=== PATIENT | male | born 1940 | race Caucasian/White ===

== ENCOUNTER 2016-11-18 11:42 | Emergency (ER) | payer MEDICARE ==
[2016-11-18 11:57] VITALS: BP 96/58; PULSE 110; RESP 20; TEMP 97.7
--- NOTE | 2016-11-18 12:14 | ED ---
General Adult HPI - General Chief complaint: Urogenital Stated complaint: CATHETER BLOCKED Time Seen by Provider: 11/18/16 11:51 Source: patient, family, RN notes reviewed Mode of arrival: ambulatory Limitations: no limitations - History of Present Illness Initial comments: Patient is a pleasant 76-year-old male presenting to the emergency Department with Yun catheter not draining. Patient last had drainage last night. Patient has had similar symptoms multiple times previously. Patient has had catheter present for the past 8 months. Patient does have a urologist that he regularly sees. Patient is now having some bladder fullness and discomfort. Daughter provides majority of history. - Related Data Allergies Allergy/AdvReac Type Severity Reaction Status Date / Time morphine Allergy Unknown Verified 11/18/16 11:57 Review of Systems ROS Statement: Those systems with pertinent positive or pertinent negative responses have been documented in the HPI. ROS Other: All systems not noted in ROS Statement are negative. Constitutional: Denies: fever Eyes: Denies: eye pain ENT: Denies: ear pain Respiratory: Denies: cough Cardiovascular: Denies: chest pain Endocrine: Denies: fatigue Gastrointestinal: Reports: abdominal pain (Bladder) Genitourinary: Reports: other (Clogged catheter) Skin: Denies: rash Neurological: Denies: weakness Past Medical History Past Medical History: Cancer, Thyroid Disorder Additional Past Medical History / Comment(s): THYROID, BPH History of Any Multi-Drug Resistant Organisms: None Reported Past Surgical History: Cholecystectomy Past Psychological History: No Psychological Hx Reported Smoking Status: Former smoker Past Alcohol Use History: None Reported Past Drug Use History: None Reported General Exam Limitations: no limitations General appearance: alert, in no apparent distress Head exam: Present: atraumatic Eye exam: Present: normal appearance, PERRL ENT exam: Present: normal oropharynx Neck exam: Present: normal inspection Respiratory exam: Present: normal lung sounds bilaterally Cardiovascular Exam: Present: regular rate, normal rhythm GI/Abdominal exam: Present: soft, distended (Distended bladder with mild tenderness) Extremities exam: Present: normal inspection Neurological exam: Present: alert Psychiatric exam: Present: normal affect, normal mood Skin exam: Absent: rash Course Vital Signs 11/18/16 11:52 Temperature 97.7 F Pulse Rate 110 H Respiratory 20 Rate Blood Pressure 96/58 O2 Sat by Pulse 95 Oximetry Medical Decision Making - Medical Decision Making Catheter placed by nursing staff with over 800 mL of urine output and resolution of symptoms. Disposition Clinical Impression: Urinary retention Disposition: HOME SELF-CARE Condition: Stable Instructions: Urinary Retention in Men (ED) Additional Instructions: Please follow-up with your urologist in the next day or 2 for recheck. Return for increased pain, fevers, worsening or change in symptoms and was unable to pass urine, or other concerns. Referrals: Simi Mi DO [Primary Care Provider] - 1-2 days
== END 2016-11-18 13:01 | disposition home or self-care (01) ==
LOC: EC 11:42
DX: T83.098A Other mechanical complication of other urinary catheter, initial encounter (principal); R33.9 Retention of urine, unspecified; Z88.5 Allergy status to narcotic agent; Z87.891 Personal history of nicotine dependence
CPT/HCPCS: 51702; 99283

== ENCOUNTER 2017-02-04 22:38 | Emergency (ER) | payer MEDICARE ==
[2017-02-04 22:55] VITALS: RESP 18
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
[2017-02-05 01:38] LABS: Appearance,Urine Turbid (Clear); Bacteria,Urine Many /hpf; Bilirubin,Urine Negative (Negative); Glucose,Urine (UA) Negative (Negative); Ketones,Urine Negative (Negative); Leukocyte Esterase,Urine Large (Negative); Nitrite,Urine Negative (Negative); Particle Count 179757; Protein,Urine 3+ (Negative); RBC,Urine >182 /hpf (0-5); UA Billing (MACRO vs. MICRO) MICRO; Urobilinogen,Urine <2.0 mg/dL (<2.0); WBC,Urine >182 /hpf (0-5)
[2017-02-05 01:41] LABS: INR 2.8 (<1.1); Prothrombin Time 27.3 sec (9.0-12.0)
[2017-02-05 01:50] LABS: Specific Gravity,Urine 1.022 (1.001-1.035)
[2017-02-05 03:19] VITALS: BP 163/92; PULSE 95; TEMP 97.9
== END 2017-02-05 03:18 | disposition home or self-care (01) ==
LOC: EC 22:38
DX: T83.091A Other mechanical complication of indwelling urethral catheter, initial encounter (principal); E07.9 Disorder of thyroid, unspecified; I48.91 Unspecified atrial fibrillation; N40.0 Benign prostatic hyperplasia without lower urinary tract symptoms; Z88.5 Allergy status to narcotic agent; Z85.9 Personal history of malignant neoplasm, unspecified; Z87.891 Personal history of nicotine dependence; Z79.01 Long term (current) use of anticoagulants; Z79.899 Other long term (current) drug therapy
CPT/HCPCS: 99284; 96365; 36415; 85610; 81001; 87086; 87077; 87186; J0696

== ENCOUNTER 2017-02-27 18:36 | Emergency (ER) | payer MEDICARE ==
[2017-02-27 18:56] VITALS: TEMP 97.8
--- NOTE | 2017-02-27 20:27 | ED ---
General Adult HPI - General Chief complaint: Urogenital Stated complaint: POSS PLUGGED CATHETER Time Seen by Provider: 02/27/17 19:00 Source: patient, family Mode of arrival: ambulatory Limitations: no limitations - History of Present Illness Initial comments: The patient is a 76-year-old male who presents to the ED with a chief complaint of Brennan catheter problem. The patient is accompanied by daughter who is power of customer account coordinator. She states that the patient went to see has Urologist, Dr. Akesr, earlier today. He was scheduled to have his Brennan catheter replaced. While attempting to remove the patient's Brennan catheter, they noticed that the patient having a large amount of discomfort. They also noticed that they were not able to drain the balloon to the Brennan catheter. According the patient 's daughter, they've had this problem in the past. Earlier this month, in fact , they removed the patient's Brennan catheter after the balloon would not deflate whatsoever. The patient developed bleeding following this development. Instead of removing the catheter today, they irrigated it and discharged the patient home. At that point in time, the patient was in no discomfort so his daughter chose to take him home. Later in the day, the patient developed discomfort. Here in the ED, patient was noted to have a an empty leg bag and a bladder scan of 478 mL. Attempts made to flush the patient's catheter without success. - Related Data Home Medications Medication Instructions Recorded Confirmed Calcitriol [Rocaltrol] 0.25 mcg PO DAILY 11/18/16 02/27/17 Calcium Carbonate [Calcium] 600 mg PO BID 11/18/16 02/27/17 Finasteride [Proscar] 5 mg PO DAILY 11/18/16 02/27/17 Lisinopril [Prinivil] 10 mg PO DAILY 11/18/16 02/27/17 Metoprolol Tartrate [Lopressor] 50 mg PO BID 11/18/16 02/27/17 Nortriptyline HCl [Pamelor] 10 mg PO TID 11/18/16 02/27/17 Tamsulosin HCl [Flomax] 0.4 mg PO BID 11/18/16 02/27/17 Warfarin Sodium [Coumadin] 4 mg PO DAILY 11/18/16 02/27/17 ALPRAZolam [Xanax] 1 mg PO TID 02/27/17 02/27/17 LORazepam [Ativan] 0.5 - 1 mg PO BID PRN 02/27/17 02/27/17 Levothyroxine Sodium [Synthroid] 200 mcg PO DAILY 02/27/17 02/27/17 Allergies Allergy/AdvReac Type Severity Reaction Status Date / Time morphine Allergy Unknown Verified 02/27/17 18:55 Review of Systems ROS Statement: Those systems with pertinent positive or pertinent negative responses have been documented in the HPI. ROS Other: All systems not noted in ROS Statement are negative. Constitutional: Denies: fever, chills, weakness Eyes: Denies: vision change Respiratory: Denies: cough, dyspnea, wheezes, hemoptysis Cardiovascular: Denies: chest pain, palpitations Endocrine: Denies: fatigue Gastrointestinal: Denies: abdominal pain, nausea, vomiting, diarrhea, constipation Genitourinary: Reports: urgency, other (decreased urination). Denies: dysuria, frequency, hematuria Neurological: Denies: headache Psychiatric: Denies: anxiety, depression Past Medical History Past Medical History: Cancer, Prostate Disorder, Thyroid Disorder Additional Past Medical History / Comment(s): THYROID, BPH History of Any Multi-Drug Resistant Organisms: None Reported Past Surgical History: Cholecystectomy Past Psychological History: No Psychological Hx Reported Smoking Status: Former smoker Past Alcohol Use History: None Reported Past Drug Use History: None Reported General Exam Limitations: no limitations General appearance: alert, in no apparent distress Head exam: Present: atraumatic Eye exam: Present: normal appearance, PERRL Pupils: Present: normal accommodation ENT exam: Present: normal exam, normal oropharynx Neck exam: Present: normal inspection Respiratory exam: Present: normal lung sounds bilaterally. Absent: respiratory distress, wheezes, rales, rhonchi, stridor Cardiovascular Exam: Present: regular rate, normal rhythm GI/Abdominal exam: Present: soft, distended (mild distension in the suprapubic region), tenderness (mild tenderness in the suprapubic region). Absent: guarding, rebound, rigid exam: Present: normal inspection, other (Brennan bag is noted to be empty). Absent: urethral discharge, scrotal swelling External exam: Present: normal external exam, other (brennan catheter noted to be in place). Absent: swelling Extremities exam: Present: normal inspection Back exam: Present: normal inspection, full ROM Neurological exam: Present: alert, other (AAOx1-2) Psychiatric exam: Present: normal affect, normal mood Skin exam: Present: warm, dry, intact Course Vital Signs 02/27/17 18:50 Temperature 97.8 F Pulse Rate 94 Respiratory 18 Rate Blood Pressure 111/69 O2 Sat by Pulse 93 L Oximetry Medical Decision Making - Medical Decision Making Patient is a 76-year-old male who presents to the ED with a chief complaint of Brennan catheter problem. Patient was seen this morning at [facility]. Evidently, there was some problem with the patient's Brennan catheter. According to the patient's daughter, the urologist was unable to drain the patient's Brennan balloon. As a result, they were unable to remove the patient's Brennan catheter. The patient was able to have his catheter flushed without difficulty. Everything seemed to be working properly so the patient was discharged home. Later in the day today, the patient developed suprapubic discomfort. He came to the ED for further evaluation. She started demanded that his Brennan catheter be removed. An attempt was made to contact Dr. Akers and the [facility]. Unfortunately, they stated that they are unable to comment on the patient given at they do not have coverage privileges at this hospital. I spoke with the patient's daughter, who stated that she would like for us to talk to our urologist here. Our urologist medical donation professional stated that he did not feel it would be appropriate to cover Dr. Akers is patient, particularly since the patient's bladder scan only showed 478cc of urine. He requested that the patient be transferred to [facility] for further evaluation by [facility]. The patient's daughter refused ambulance transport and stated that she will drive the patient by private vehicle. Of note, she demanded that the patient receive pain medication prior to discharge. In addition, the patient had a bowel movement with some improvement of his overall symptoms. Disposition Clinical Impression: Problem with Brennan catheter Disposition: HOME SELF-CARE Condition: Good Instructions: Urinary Retention in Men (ED) Additional Instructions: Please go straight to [facility] for further care. Referrals: Simi Mi DO [Primary Care Provider] - 1-2 days Time of Disposition: 20:27
[2017-02-27] MEDS ORDERED: HYDROmorphone 1 MG/ML 1 ML SYRINGE IM STA (20:28)
[2017-02-27 20:36] VITALS: BP 109/68; PULSE 89; RESP 16
== END 2017-02-27 20:33 | disposition home or self-care (01) ==
LOC: EC 18:36
DX: T83.098A Other mechanical complication of other urinary catheter, initial encounter (principal); E07.9 Disorder of thyroid, unspecified; N40.0 Benign prostatic hyperplasia without lower urinary tract symptoms; Z87.891 Personal history of nicotine dependence; Z85.9 Personal history of malignant neoplasm, unspecified; Z79.899 Other long term (current) drug therapy; Z88.5 Allergy status to narcotic agent; Z79.01 Long term (current) use of anticoagulants
CPT/HCPCS: 51798; 99284; 96372; J1170